=== PATIENT | male | born 1955 | race Caucasian/White ===

== ENCOUNTER 2018-09-09 17:07 | Emergency (ER) | payer BC ==
[2018-09-09 17:34] VITALS: BP 149/96
--- NOTE | 2018-09-09 19:02 | ER Document Report ---
ED Blood Pressure Problem - General Chief Complaint: High Blood Pressure Stated Complaint: BLOOD PRESSURE ISSUES Time Seen by Provider: 09/09/18 18:42 Primary Care Provider: ADORE GOMES PA [Primary Care Provider] - Follow up as needed TRAVEL OUTSIDE OF THE [place] IN LAST 30 DAYS: No - HPI Notes: Patient is a 63-year-old male that presents to the emergency department for chi ef complaint of palpitations and elevated blood pressure. Patient states back in April 2018 he took his blood pressure at [facility] and it was elevated but he does not remember the number. He brought a blood pressure cuff at that time to keep an eye on it. He states he has had elevated blood pressure since however today he started to have palpitations and when he took it he had a reading of 228/115. Patient states the palpitations were felt in his neck and were a pounding sensation. He felt as though it was more than 1 beat per second did not check his heart rate at home. The palpitations lasted for "a little while" and he cannot further elaborate on timeline. He denied any associated chest pain, shortness of breath, lightheadedness, headache, vision changes, numbness, weakness, diaphoresis, nausea and vomiting. Patient does not have a history of hypertension and does not take medications daily for hypertension. Currently he states he is asymptomatic and only in the emergency room because his daughter made him come. Past Medical History: Negative Past Surgical History: Reviewed in chart Social History: Reviewed in chart Family History: Reviewed and noncontributory for presenting illness Allergies: Reviewed, see documented allergy list. REVIEW OF SYSTEMS: CONSTITUTIONAL : No fever No chills No diaphoresis No recent illness EENT: No vision changes No congestion No sore throat CARDIOVASCULAR: No chest pain palpitations RESPIRATORY: No shortness of breath No cough No difficulty breathing GASTROINTESTINAL: No abdominal pain No nausea No vomiting No diarrhea GENITOURINARY: No dysuria No hematuria No difficulty urinating MUSCULOSKELETAL: No back pain No leg pain No arm pain SKIN: No rashes No lesions LYMPHATIC: No swollen, enlarged glands. NEUROLOGICAL: No lightheadedness No headache No weakness No paresthesias PSYCHIATRIC: No anxiety No depression PHYSICAL EXAMINATION: Vital signs reviewed, nursing noted reviewed. GENERAL: Well-appearing, well-nourished and in no acute distress. HEAD: Atraumatic, normocephalic. EYES: Eyes appear normal, extraocular movements intact, sclera anicteric, conjunctiva are normal. ENT: nares patent, oropharynx clear without exudates. Moist mucous membranes. NECK: Normal range of motion, supple without lymphadenopathy LUNGS: Breath sounds clear to auscultation bilaterally and equal. No wheezes rales or rhonchi. HEART: Regular rate and rhythm without murmurs ABDOMEN: Soft, nontender, normoactive bowel sounds. No rebound, guarding, or rigidity. No masses appreciated. EXTREMITIES: Nontender, good range of motion, no pitting or edema. NEUROLOGICAL: No focal neurological deficits. Moves all extremities spontaneously Motor and sensory grossly intact on exam. PSYCH: Normal mood, normal affect. SKIN: Warm, Dry, normal turgor, no rashes or lesions noted on exposed skin - Related Data Allergies/Adverse Reactions: No Known Allergies Allergy (Verified 09/09/18 17:12) Past Medical History - Social History Smoking Status: Unknown if Ever Smoked Family History: Reviewed & Not Pertinent - Past Medical History Cardiac Medical History: Reports: Hx Hypercholesterolemia Past Surgical History: Reports: Hx Orthopedic Surgery, Hx Tonsillectomy - Immunizations Hx Diphtheria, Pertussis, Tetanus Vaccination: No Physical Exam - Vital signs Vitals: Temp Pulse Resp BP Pulse Ox 97.5 F 87 16 149/96 H 96 09/09/18 17:31 09/09/18 17:31 09/09/18 17:31 09/09/18 17:31 09/09/18 17:31 Course - Re-evaluation Re-evalutation: 09/09/18 19:01 Vitals reviewed. Nursing notes reviewed. EKG shows normal sinus rhythm with a rate of 77. He has no ectopy or ischemic changes. His blood pressure in the ER was 149/96 without treatment. Patient is currently asymptomatic. Further work- up not indicated given his lack of symptoms. I did tell him that he likely has hypertension and will likely need started on blood pressure medications. I advised him to take his blood pressure cuff to his PCPs office tomorrow for a walk-in to have it checked and calibrated as well as to potentially get started on BP medications. He is otherwise hemodynamically stable. - Vital Signs Vital signs: Temp Pulse Resp BP Pulse Ox 97.5 F 87 16 149/96 H 96 09/09/18 17:31 09/09/18 17:31 09/09/18 17:31 09/09/18 17:31 09/09/18 17:31 Discharge - Discharge Clinical Impression: Palpitations Hypertension Qualifiers: Hypertension type: unspecified Qualified Code(s): I10 - Essential (primary) hypertension Condition: Stable Disposition: HOME, SELF-CARE Instructions: High Blood Pressure ([facility]), Palpitations (Irregular or Rapid Heartrate) ([facility]) Additional Instructions: Please return to the emergency department if you have any worsening, or concern of your symptoms. Please return to the emergency department if you develop chest pain, difficulty breathing, severe abdominal pain, or ongoing vomiting. Please follow-up with your primary care physician in 2-3 days and any other recommended physicians. If prescribed, take all medications as directed. If you have any questions or concerns do not hesitate to return the emergency department for evaluation. Take your blood pressure cuff to your doctor's appointment to have it checked and possibly calibrated Forms: Elevated Blood Pressure Referrals: ADORE GOMES PA [Primary Care Provider] - Follow up as needed MADHU SOTO MD [ACTIVE STAFF] - Follow up tomorrow
--- NOTE | 2018-09-09 20:44 | EKG REPORT ---
SEVERITY:- NORMAL ECG - SINUS RHYTHM : Confirmed by: Hayley Silva MD 09-Sep-2018 20:43:48
== END 2018-09-09 19:00 | disposition home or self-care (01) ==
LOC: ER 17:07
DX: I10 Essential (primary) hypertension (principal); R00.2 Palpitations
CPT/HCPCS: 93005; 93010; 99283

== ENCOUNTER → 2020-05-28 | Outpatient (CLI) | payer BC ==
[~2020-05-28] MED LIST: COVID-19 VACCINE (PFIZER)/PF 30 MCG/0.3 ML VIAL IM ONE; EPINEPHRINE INJ/PF 1 MG/1 ML AMPULE IM PRN
== END ==
LOC: EMPHEALTH 10:57
PROVIDERS: ATTEND Internal Medicine
DX: Z23 Encounter for immunization (principal)
CPT/HCPCS: 91300